=== PATIENT | male | born 1955 | race Caucasian/White ===

== ENCOUNTER 2018-09-17 11:15 | Outpatient (CLI) | payer MEDICAID, MEDICARE ==
--- NOTE | 2018-09-17 16:55 | Diagnostic Imaging Report ---
Indication: Flank pain Technique: Grayscale and duplex images of the kidneys, retroperitoneum, and bladder were obtained. Comparison: 01/06/2014 abdominal ultrasound Findings: Right kidney measures 9.9 cm in length. Left kidney measures 10.4 cm in length. Both kidneys demonstrate normal echogenicity. No hydronephrosis. The cortex is somewhat thinned bilaterally. No focal abnormality. Normal inferior vena cava. Bladder is normal. Prostate volume calculated at 22 mm. Bladder volume calculated at one 28 mL. Patient had no urge to void Impression: Mild renal cortical thinning, nonspecific Negative for hydronephrosis or evidence of urinary stone disease.
== END 2018-09-17 13:15 | disposition home or self-care (01) ==
LOC: ULS 11:15
DX: N18.3 Chronic kidney disease, stage 3 (moderate) (principal)
CPT/HCPCS: 76770